=== PATIENT | male | born 1945 ===

== ENCOUNTER 2021-01-03 12:15 | Inpatient (IN) | payer OTHER ==
[~2021-01-03] VITALS: Ht 170.2 cm; Wt 244.0 kg
[2021-01-03] MEDS ORDERED: ZESTRIL40 M1 PO (15:06)
[2021-01-03] MEDS ORDERED: GABAPEN PO (15:07)
[2021-01-03] MEDS ORDERED: ADULT LOW DOSE81 M1 PO (15:07)
[2021-01-03] MEDS ORDERED: PEPCID AC20 MG PO (15:07)
[2021-01-03] MEDS ORDERED: TAMS0.4C PO (15:08)
[2021-01-15] MEDS ORDERED: GABAPENTIN100 M2 (08:07)
[2021-01-15] MEDS ORDERED: ATORVASTATIN CA20 MG (08:07)
[2021-01-18] MEDS ORDERED: HYOSCYAMINE0.125 M1 SL (11:53)
[2021-01-18] MEDS ORDERED: OXYC1TAB9 PO (11:54)
== END 2021-01-18 15:00 | disposition home or self-care (01) | DRG 330 ==
LOC: O/R 01-15 04:56 → SURH 01-15 04:56
PROVIDERS: ADMIT Surgery; ATTEND Surgery
PROC: 07TC4ZZ Resection of Pelvis Lymphatic, Percutaneous Endoscopic Approach (ICD-10-PCS; 2021-01-15)
PROC: 3E0F7SF Introduction of Other Gas into Respiratory Tract, Via Natural or Artificial Opening (ICD-10-PCS; 2021-01-15)
PROC: 0DBK4ZZ Excision of Ascending Colon, Percutaneous Endoscopic Approach (ICD-10-PCS; principal; 2021-01-15 08:30)
DX: C18.2 Malignant neoplasm of ascending colon (principal); C18.3 Malignant neoplasm of hepatic flexure; D64.9 Anemia, unspecified